=== PATIENT | female | born 1955 | race American Indian/Alaskan Native ===

== ENCOUNTER 2019-01-04 10:30 | Inpatient (IN) | payer OTHER ==
[2019-01-04] MEDS ORDERED: NACL 0.9% 500 ML 500 ML IV ONE (11:11)
[2019-01-04] MEDS ORDERED: NACL 0.9% 1000 ML 1,000 ML ONE (11:32)
[2019-01-04 11:55] LABS: Basophils # (Auto) 0.1 K/mm3 (0.0-0.1); Basophils % (Auto) 0.6 % (0.0-1.8); Eosinophils # (Auto) 0.2 K/mm3 (0.0-0.4); Eosinophils % (Auto) 1.7 % (0.0-4.3); Hematocrit 33.8 % (30.3-42.9); Hemoglobin 11.5 gm/dl (10.1-14.3); Lymphocytes # (Auto) 2.9 K/mm3 (1.2-5.4); Lymphocytes % (Auto) 25.2 % (13.4-35.0); Mean Corpuscular HGB Conc 34 % (30-34); Monocytes # (Auto) 0.5 K/mm3 (0.0-0.8); Monocytes % (Auto) 4.6 % (0.0-7.3); Platelet Count 295 K/mm3 (140-440); Red Blood Count 4.96 M/mm3 (3.65-5.03); Red Cell Distribution Width 16.1 % (13.2-15.2)
[2019-01-04 12:01] LABS: Mean Corpuscular Volume 68 fl (79-97)
[2019-01-04 12:06] LABS: Partial Thromboplastin Time 30.1 Sec. (24.2-36.6)
[2019-01-04 12:13] LABS: Bacteria,Urine 1+ /HPF (Negative); Bilirubin,Urine NEG (Negative); Blood,Urine SM (Negative); Color,Urine Straw (Yellow); Protein,Urine <15 mg/dL mg/dL (Negative); Urobilinogen,Urine < 2.0 mg/dL (<2.0); WBC,Urine < 1.0 /HPF (0.0-6.0)
[2019-01-04 12:13] LABS: Creatine Kinase MB 1.8 ng/mL (0.0-4.0)
[2019-01-04 12:15] LABS: BUN/Creatinine Ratio 18; Blood Urea Nitrogen 11 mg/dL (7-17); Calcium 9.4 mg/dL (8.4-10.2); Hemolysis Index 8
--- NOTE | 2019-01-04 12:16 | Emergency Department Report ---
ED General Adult HPI - General Chief complaint: Arrhythmia/Palpitations Stated complaint: MONIK Time Seen by Provider: 01/04/19 11:11 Source: EMS Mode of arrival: Stretcher Limitations: No Limitations - History of Present Illness Initial comments: This is a 63-year-old female that was transported via EMS for evaluation of difficulty in breathing. They found her to have a heart rate that was elevated. They asked her to do a vagal maneuver and actually this slowed things down. I reviewed her prehospital EKGs and they do appear to be possibly consistent with supraventricular tachycardia and read as probable sinus tachycardia by the computer. She does have a first-degree AV block on one of 3 EKGs with her heart rate in the low 90s. That may account for the difficulty in being certain of her concordia focus. It may very well be that these are all sinus tachycardia. Medication she arrives with a normal sinus rhythm. Patient tells me that she has had several similar such episodes. She is at rest when they happen. She become short of breath. Doesn't experience any chest pain pressure or tightness. She mentioned to me assessing the risk that she had some right arm numbness. She told me that she had right facial and circumoral tingling. She mentioned a headache to the nurse but denied any headache on my encounter. She is not currently short of breath. She states that she may suffer from anxiety. Her called EMS. She is essentially back to her baseline. She states that she "takes it easy at her age". She denies exert ional dyspnea. -: Gradual Quality: other (some circumoral etc. paresthesias as above) Consistency: now resolved Improves with: none Worsens with: none Associated Symptoms: denies other symptoms, shortness of breath - Related Data Allergies Allergy/AdvReac Type Severity Reaction Status Date / Time No Known Allergies Allergy Unverified 01/04/19 11:51 ED Review of Systems ROS: Stated complaint: MONIK Other details as noted in HPI Constitutional: denies: chills, fever Eyes: denies: eye pain, eye discharge, vision change ENT: denies: ear pain, throat pain Respiratory: shortness of breath. denies: cough, wheezing Cardiovascular: denies: chest pain, palpitations Endocrine: no symptoms reported Gastrointestinal: denies: abdominal pain, nausea, diarrhea Genitourinary: denies: urgency, dysuria, discharge Musculoskeletal: denies: back pain, joint swelling, arthralgia Skin: denies: rash, lesions Neurological: paresthesias. denies: headache, weakness, numbness, confusion, abnormal gait, vertigo Psychiatric: denies: anxiety, depression Hematological/Lymphatic: denies: easy bleeding, easy bruising ED Past Medical Hx - Past Medical History Previous Medical History?: Yes Hx Hypertension: Yes Hx Diabetes: Yes - Surgical History Hx Cholecystectomy: Yes Additional Surgical History: Fibroids - Social History Smoking Status: Never Smoker Substance Use Type: None ED Physical Exam - General Limitations: No Limitations General appearance: alert, in no apparent distress - Head Head exam: Present: atraumatic, normocephalic - Eye Eye exam: Present: normal appearance. Absent: scleral icterus - ENT ENT exam: Present: mucous membranes moist - Neck Neck exam: Present: normal inspection. Absent: tenderness, meningismus - Respiratory Respiratory exam: Present: normal lung sounds bilaterally. Absent: respiratory distress - Cardiovascular Cardiovascular Exam: Present: regular rate, normal rhythm. Absent: systolic murmur, diastolic murmur, rubs, gallop - GI/Abdominal GI/Abdominal exam: Present: soft, normal bowel sounds. Absent: distended, tenderness, guarding, rebound, rigid - Extremities Exam Extremities exam: Present: normal inspection - Back Exam Back exam: Present: normal inspection - Neurological Exam Neurological exam: Present: alert, oriented X3, CN II-XII intact. Absent: motor sensory deficit - Psychiatric Psychiatric exam: Present: normal affect, normal mood - Skin Skin exam: Present: warm, dry, intact, normal color. Absent: rash ED Course Vital Signs 01/04/19 01/04/19 01/04/19 10:40 10:46 10:48 Temperature 98.2 F Pulse Rate 102 H Respiratory 16 Rate Blood Pressure 126/80 126/80 O2 Sat by Pulse 99 98 99 Oximetry 01/04/19 01/04/19 11:00 11:33 Temperature Pulse Rate Respiratory Rate Blood Pressure 126/80 109/90 O2 Sat by Pulse 98 Oximetry - Reevaluation(s) Reevaluation #1: Discussed with Dr. Link. CTA is pending. The d-dimer is just slightly elevated . Patient will be admitted for further care and evaluation by the hospitalist service. 01/04/19 12:31 ED Medical Decision Making - Lab Data Result diagrams: 01/04/19 11:27 01/04/19 11:27 Laboratory Results - last 24 hr 01/04/19 01/04/19 01/04/19 11:27 11:27 11:27 WBC 11.6 H RBC 4.96 Hgb 11.5 Hct 33.8 MCV 68 L MCH 23 L MCHC 34 RDW 16.1 H Plt Count 295 Lymph % (Auto) 25.2 [place] % (Auto) 4.6 Eos % (Auto) 1.7 Baso % (Auto) 0.6 Lymph # 2.9 [place] # 0.5 Eos # 0.2 Baso # 0.1 Seg Neutrophils % 67.9 Seg Neutrophils # 7.9 H PT 13.8 INR 1.00 APTT 30.1 D-Dimer 283.34 H Sodium 142 Potassium 3.4 L Chloride 101.7 Carbon Dioxide 25 Anion Gap 19 BUN 11 Creatinine 0.6 L Estimated GFR > 60 BUN/Creatinine Ratio 18 Glucose 187 H Calcium 9.4 Magnesium 1.40 L Total Creatine Kinase 109 CK-MB (CK-2) 1.8 CK-MB (CK-2) Rel Index 1.6 Troponin T < 0.010 NT-Pro-B Natriuret Pep 168.4 Urine Color Urine Turbidity Urine pH Ur Specific [place] Urine Protein Urine Glucose (UA) Urine Ketones Urine Blood Urine Nitrite Urine Bilirubin Urine Urobilinogen Ur Leukocyte Esterase Urine WBC (Auto) Urine RBC (Auto) U Epithel Cells (Auto) Urine Bacteria (Auto) 01/04/19 11:50 WBC RBC Hgb Hct MCV MCH MCHC RDW Plt Count Lymph % (Auto) [place] % (Auto) Eos % (Auto) Baso % (Auto) Lymph # [place] # Eos # Baso # Seg Neutrophils % Seg Neutrophils # PT INR APTT D-Dimer Sodium Potassium Chloride Carbon Dioxide Anion Gap BUN Creatinine Estimated GFR BUN/Creatinine Ratio Glucose Calcium Magnesium Total Creatine Kinase CK-MB (CK-2) CK-MB (CK-2) Rel Index Troponin T NT-Pro-B Natriuret Pep Urine Color Straw Urine Turbidity Clear Urine pH 8.0 H Ur Specific [place] 1.004 Urine Protein <15 mg/dl Urine Glucose (UA) Neg Urine Ketones Tr Urine Blood Sm Urine Nitrite Neg Urine Bilirubin Neg Urine Urobilinogen < 2.0 Ur Leukocyte Esterase Lg Urine WBC (Auto) < 1.0 Urine RBC (Auto) 1.0 U Epithel Cells (Auto) 2.0 Urine Bacteria (Auto) 1+ - EKG Data -: EKG Interpreted by Me EKG shows normal: sinus rhythm, axis, intervals, QRS complexes, ST-T waves Rate: normal - EKG Data Interpretation: no acute changes (there is a QS in V2 and V3 consistent with old zone) - Radiology Data Radiology results: image reviewed (chest x-ray no acute process) Critical care attestation.: If time is entered above; I have spent that time in minutes in the direct care of this critically ill patient, excluding procedure time. 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
[2019-01-04 12:20] LABS: Amphetamine Screen,Urine PRESUMPTIVE NEGATIVE; Benzodiazepines Screen,Urine PRESUMPTIVE NEGATIVE; Cannabinoid Screen,Urine PRESUMPTIVE NEGATIVE; Cocaine Screen,Urine PRESUMPTIVE NEGATIVE; Methadone Screen,Urine PRESUMPTIVE NEGATIVE; Opiate Screen,Urine PRESUMPTIVE NEGATIVE
[2019-01-04] MEDS ORDERED: MAGNESIUM SULFATE 2GM/50ML 2 GM/50 ML BAG IV ONE ×2 (12:23→13:06)
[2019-01-04] MEDS ORDERED: BABY ASPIRIN PO ONE (12:32)
[2019-01-04] MEDS ORDERED: BABY ASPIRIN ONE (13:06)
--- NOTE | 2019-01-04 13:08 | XRay Report ---
PROCEDURE: XR CHEST 1V AP TECHNIQUE: Chest, portable upright HISTORY: Dysrhythmia COMPARISON: None FINDINGS: The heart size is normal. There is no pulmonary vascular congestion seen. Mediastinal contours are normal. Lungs are clear. There is no pleural effusion seen. There is no pneumothorax seen. IMPRESSION: No acute abnormality identified. This document is electronically signed by Lashawn Vergara MD., Jan 04 2019 01:06:13 PM ET
--- NOTE | 2019-01-04 14:59 | Cat Scan Report ---
PROCEDURE: CT ANGIO CHEST TECHNIQUE: Computerized tomographic angiography of the chest was performed after the IV injection of iodinated nonionic contrast including image processing. The image data was postprocessed using 2-di mensional multiplanar reformatted (MPR) and 3-dimensional (MIP and/or volume rendered) techniques. Au tomated exposure control, adjustment of mA and/or kV according to patient size, or iterative reconstr uction dose optimization techniques were utilized. Sagittal and coronal reformatted images HISTORY: MONIK COMPARISONS: Chest x-ray January 04, 2019 . FINDINGS: Aorta intact without aneurysm or dissection. Pulmonary trunk dilated to 4.4 cm. No acute pulmonary embolus Cardiomegaly. No coronary atherosclerotic calcification identified. No pericardial effusion No axillary, mediastinal or hilar adenopathy No pneumothorax. No effusion. No consolidation No emphysematous change. No bronchiectasis. No suspect pulmonary nodule Upper abdomen demonstrates no free air. No free fluid. No acute inflammatory change No acute bony abnormality. IMPRESSION: No acute pulmonary embolus Pulmonary trunk is dilated which can be seen in the setting of pulmonary arterial hypertension Aorta intact without aneurysm or dissection No acute consolidation or effusion . This document is electronically signed by Jim Marie MD., Jan 04 2019 02:56:52 PM ET
--- NOTE | 2019-01-04 17:37 | History and Physical Report ---
History of Present Illness Date of examination: 01/04/19 Date of admission: 01/04/19 12:55 Medications and Allergies Allergies Allergy/AdvReac Type Severity Reaction Status Date / Time No Known Allergies Allergy Unverified 01/04/19 11:51 Home Medications Medication Instructions Recorded Confirmed Last Taken Type Aspirin EC 81 mg PO DAILY 01/04/19 01/04/19 Unknown History Diclofenac Sodium 75 mg PO DAILY 01/04/19 01/04/19 Unknown History Gabapentin [Neurontin] 300 mg PO TID 01/04/19 01/04/19 Unknown History Hydrochlorothiazide 25 mg PO DAILY 01/04/19 01/04/19 Unknown History Metformin HCl [metFORMIN] 1,000 mg PO BID 01/04/19 01/04/19 Unknown History Quinapril HCl 20 mg PO QDAY 01/04/19 01/04/19 Unknown History Simvastatin 80 mg PO HS 01/04/19 01/04/19 Unknown History amLODIPine [Norvasc] 10 mg PO DAILY 01/04/19 01/04/19 Unknown History glipiZIDE [Glucotrol] 25 mg PO DAILY 01/04/19 01/04/19 Unknown History Active Meds: Active Medications Insulin Human Lispro (Humalog) 0 unit SUB-Q [facility]; Protocol Exam - Constitutional Vitals: Temp Pulse Resp BP Pulse Ox 97.8 F 79 16 165/80 95 01/04/19 16:20 01/04/19 16:20 01/04/19 16:20 01/04/19 16:20 01/04/19 16:20 Results - Labs CBC & Chem 7: 01/04/19 11:27 01/04/19 11:27 Labs: Laboratory Last Values WBC 11.6 K/mm3 (4.5-11.0) H 01/04/19 11:27 RBC 4.96 M/mm3 (3.65-5.03) 01/04/19 11:27 Hgb 11.5 gm/dl (10.1-14.3) 01/04/19 11:27 Hct 33.8 % (30.3-42.9) 01/04/19 11:27 MCV 68 fl (79-97) L 01/04/19 11:27 MCH 23 pg (28-32) L 01/04/19 11:27 MCHC 34 % (30-34) 01/04/19 11:27 RDW 16.1 % (13.2-15.2) H 01/04/19 11:27 Plt Count 295 K/mm3 (140-440) 01/04/19 11:27 Lymph % (Auto) 25.2 % (13.4-35.0) 01/04/19 11:27 [place] % (Auto) 4.6 % (0.0-7.3) 01/04/19 11:27 Eos % (Auto) 1.7 % (0.0-4.3) 01/04/19 11:27 Baso % (Auto) 0.6 % (0.0-1.8) 01/04/19 11: Lymph # 2.9 K/mm3 (1.2-5.4) 01/04/19 11: [place] # 0.5 K/mm3 (0.0-0.8) 01/04/19 11: Eos # 0.2 K/mm3 (0.0-0.4) 01/04/19 11: Baso # 0.1 K/mm3 (0.0-0.1) 01/04/19 11:27 Seg Neutrophils % 67.9 % (40.0-70.0) 01/04/19 11: Seg Neutrophils # 7.9 K/mm3 (1.8-7.7) H 01/04/19 11:27 PT 13.8 Sec. (12.2-14.9) 01/04/19 11: INR 1.00 (0.87-1.13) 01/04/19 11: APTT 30.1 Sec. (24.2-36.6) 01/04/19 11:27 283.34 ng/mlDDU (0-234) H 01/04/19 11:27 Sodium 142 mmol/L (137-145) 01/04/19 11:27 Potassium 3.4 mmol/L (3.6-5.0) L 01/04/19 11:27 Chloride 101.7 mmol/L (98-107) 01/04/19 11: Carbon Dioxide 25 mmol/L (22-30) 01/04/19 11:27 19 mmol/L 01/04/19 11:27 BUN 11 mg/dL (7-17) 01/04/19 11:27 0.6 mg/dL (0.7-1.2) L 01/04/19 11:27 Estimated GFR > 60 ml/min 01/04/19 11:27 18 % 01/04/19 11:27 Glucose 187 mg/dL (65-100) H 01/04/19 11:27 Lactic Acid 1.60 mmol/L (0.7-2.0) 01/04/19 11:40 Calcium 9.4 mg/dL (8.4-10.2) 01/04/19 11:27 Magnesium 1.40 mg/dL (1.7-2.3) L 01/04/19 11:27 109 units/L (30-135) 01/04/19 11:27 CK-MB (CK-2) 1.8 ng/mL (0.0-4.0) 01/04/19 11:27 CK-MB (CK-2) Rel Index 1.6 (0-4) 01/04/19 11:27 < 0.010 ng/mL (0.00-0.029) 01/04/19 11:27 NT-Pro-B Natriuret Pep 168.4 pg/mL (0-900) 01/04/19 11:27 TSH 2.090 mlU/mL (0.270-4.200) 01/04/19 11:27 Straw (Yellow) 01/04/19 11:50 Clear (Clear) 01/04/19 11:50 8.0 (5.0-7.0) H 01/04/19 11:50 Ur Specific [place] 1.004 (1.003-1.030) 01/04/19 11:50 <15 mg/dl mg/dL (Negative) 01/04/19 11:50 Neg mg/dL (Negative) 01/04/19 11:50 Tr mg/dL (Negative) 01/04/19 11:50 Sm (Negative) 01/04/19 11:50 Neg (Negative) 01/04/19 11:50 Neg (Negative) 01/04/19 11:50 < 2.0 mg/dL (<2.0) 01/04/19 11:50 Ur Leukocyte Esterase Lg (Negative) 01/04/19 11:50 < 1.0 /HPF (0.0-6.0) 01/04/19 11:50 1.0 /HPF (0.0-6.0) 01/04/19 11:50 U Epithel Cells (Auto) 2.0 /HPF (0-13.0) 01/04/19 11:50 1+ /HPF (Negative) 01/04/19 11:50 Presumptive negative 01/04/19 11:50 Presumptive negative 01/04/19 11:50 Ur Barbiturates Screen Presumptive negative 01/04/19 11:50 Ur Phencyclidine Scrn Presumptive negative 01/04/19 11:50 Ur Amphetamines Screen Presumptive negative 01/04/19 11:50 U Benzodiazepines Scrn Presumptive negative 01/04/19 11:50 Presumptive negative 01/04/19 11:50 U Marijuana (THC) Screen Presumptive negative 01/04/19 11:50 Disclamer 01/04/19 11:50 - Imaging and Cardiology Imaging and Cardiology: CTA chest IMPRESSION: No acute pulmonary embolus Pulmonary trunk is dilated which can be seen in the setting of pulmonary arterial hypertension Aorta intact without aneurysm or dissection No acute consolidation or effusion . This document is electronically signed by Jim Marie MD., Jan 04 2019 02:56:52 PM ET
[2019-01-04] MEDS ORDERED: QUINAPRIL HCL 20 MG PO SCH (17:45)
[2019-01-04] MEDS ORDERED: NON-FORMULARY (Hydrochlorothiazide 25 MG) PO SCH (17:45)
[2019-01-04] MEDS: HumaLOG SUB-Q SCH ×2 (17:56→21:43)
[2019-01-04] MEDS: HCTZ PO SCH (18:07)
[2019-01-04] MEDS: ZESTRIL PO SCH (18:08)
[2019-01-04] MEDS: GLUCOPHAGE PO SCH (18:08)
[2019-01-04] MEDS: GLUCOTROL PO SCH (18:09)
[2019-01-04] MEDS: NORVASC PO SCH (18:09)
[2019-01-04] MEDS: VOLTAREN DR PO SCH (19:05)
[2019-01-04] MEDS: NEURONTIN PO SCH (21:42)
[2019-01-04] MEDS ORDERED: ZOFRAN IV PRN (21:49)
[2019-01-04] MEDS ORDERED: MORPHINE IV PRN (21:49)
[2019-01-04] MEDS ORDERED: PERCOCET 5/325 PO PRN (21:49)
[2019-01-04] MEDS ORDERED: TYLENOL PO PRN (21:49)
[2019-01-04] MEDS ORDERED: SODIUM CHLORIDE FLUSH SYRINGE 10 ML IV PRN (21:49)
[2019-01-04] MEDS ORDERED: NON-FORMULARY (Metformin Hcl [Metformin] 1,000 MG) PO SCH (22:00)
[2019-01-04] MEDS ORDERED: PRAVACHOL PO SCH (22:00)
[2019-01-04] MEDS ORDERED: SIMVASTATIN 80 MG PO SCH (22:00)
[2019-01-04] MEDS: SODIUM CHLORIDE FLUSH SYRINGE 10 ML IV SCH (22:01)
--- NOTE | 2019-01-05 03:35 | Event Note ---
Date: 01/04/19 Chest pain Palpitations T2DM HTN HLD
--- NOTE | 2019-01-05 04:04 | History and Physical Report ---
CHIEF COMPLAINT: 1. Palpitations and difficulty breathing for 1 day. 2. Some chest tightness since morning. HISTORY OF PRESENT ILLNESS: This 63-year-old female with history of hypertension, hyperlipidemia, and type 2 diabetes comes in for difficulty breathing and palpitations. Also, some right upper extremity and right facial numbness. Also, some chest tightness and right-sided tingling and subsided. No shortness of breath. No diaphoresis. PAST MEDICAL HISTORY: As mentioned, hypertension, diabetes, hyperlipidemia. PAST SURGICAL HISTORY: Cholecystectomy and thyroidectomy. SOCIAL HISTORY: Does not smoke. FAMILY HISTORY: Significant for hypertension. PHYSICAL EXAMINATION: GENERAL: Young elderly female, cooperative during the examination. VITAL SIGNS: Blood pressure was 165/80, temperature is 98.3, pulse is 70, respirations 18. HEENT: Unremarkable. Pupils are equal and reactive. NECK: Supple, no lymphadenopathy, no thyromegaly. LUNGS: Clear to auscultation and percussion. Good air entry. CARDIOVASCULAR: S1, S2 heard. No gallop, no murmur, no rub. Apical impulse in left fifth intercostal space and midclavicular line. ABDOMEN: Soft and benign. No hepatosplenomegaly, no guarding, no rigidity. Hernial orifices are normal. EXTREMITIES: Good pedal pulses. No pedal edema. CENTRAL NERVOUS SYSTEM: Alert and oriented x 4, nonfocal exam. SKIN: Normal. LABORATORY DATA AND IMAGING STUDIES: EKG shows sinus rhythm, left atrial enlargement, anteroseptal infarct, age indeterminate. LABORATORY DATA: White count 11,600, H and H of 11.5 and 33.8, platelet count is 295,000. D-dimer is 283. Potassium is 3.4, glucose is 187. Lactic acid is normal at 1.60. Hemoglobin A1c was not done. Urine was normal. Drug screen was negative. Chest x-ray and chest CT are normal. No acute embolism. ASSESSMENT AND PLAN: 1. Chest pain, rule out myocardial infarction, chest pain protocol. 2. Palpitations secondary to increased heart rate. We will get a Cardiology consult. 3. Hypertension. Continue antihypertensives. 4. Type 2 diabetes. Continue oral hypoglycemics and coverage. 5. Hyperlipidemia. Continue statins. 6. Deep venous thrombosis prophylaxis. Lovenox 40 mg subcutaneously daily. JOB# [id number] VICTORINO/RIYA
[2019-01-05] MEDS: HumaLOG SUB-Q SCH ×5 (08:00→13:31)
[2019-01-05] MEDS ORDERED: LEXISCAN IV ONE ×2 (08:04→08:08)
[2019-01-05] MEDS: GLUCOPHAGE PO SCH (09:52)
[2019-01-05] MEDS: NEURONTIN PO SCH ×2 (09:52→13:30)
[2019-01-05] MEDS ORDERED: HALFPRIN EC PO SCH (10:00)
[2019-01-05 10:05] LABS: Basophils # (Auto) 0.1 K/mm3 (0.0-0.1); Basophils % (Auto) 0.5 % (0.0-1.8); Eosinophils # (Auto) 0.2 K/mm3 (0.0-0.4); Eosinophils % (Auto) 1.8 % (0.0-4.3); Hematocrit 34.6 % (30.3-42.9); Hemoglobin 11.2 gm/dl (10.1-14.3); Lymphocytes # (Auto) 2.6 K/mm3 (1.2-5.4); Lymphocytes % (Auto) 23.1 % (13.4-35.0); Mean Corpuscular HGB Conc 32 % (30-34); Monocytes # (Auto) 0.5 K/mm3 (0.0-0.8); Monocytes % (Auto) 4.5 % (0.0-7.3); Platelet Count 280 K/mm3 (140-440); Red Blood Count 5.03 M/mm3 (3.65-5.03); Red Cell Distribution Width 16.3 % (13.2-15.2)
[2019-01-05 10:15] LABS: Mean Corpuscular Volume 69 fl (79-97)
[2019-01-05 10:30] LABS: Alanine Aminotransferase 12 units/L (7-56); Albumin 4.2 g/dL (3.9-5); BUN/Creatinine Ratio 14; Blood Urea Nitrogen 10 mg/dL (7-17); Calcium 9.2 mg/dL (8.4-10.2); Hemolysis Index 0
--- NOTE | 2019-01-05 11:43 | Discharge Summary ---
Providers - Providers Date of Admission: 01/04/19 12:55 Attending physician: DICKSON FELTON MD Primary care physician: RAMON TOVAR MD Hospitalization Condition: Stable Hospital course: 63-year-old woman Complaining of shortness of breath and palpitations, she has a prominent complaint of right arm numbness associated with facial tingling, the patient went on to have a stress test which was negative, ACS was ruled out. Chest x-ray and EKG were within normal limits. Echo showed preserved EF. The patient was reassured and subsequently discharged home. Diagnoses Chest pain due to costochondritis Hypertension Diabetes Disposition: DC- TO HOME OR SELFCARE Time spent for discharge: 35 minutes Core Measure Documentation - Palliative Care Palliative Care/ Comfort Measures: Not Applicable - Core Measures Any of the following diagnoses?: none Exam - Constitutional Vitals: Temp Pulse Resp BP Pulse Ox 98.5 F 71 20 136/69 96 01/05/19 05:09 01/05/19 05:09 01/05/19 05:09 01/05/19 05:09 01/05/19 05:09 General appearance: Present: no acute distress, well-nourished - EENT Eyes: Present: PERRL ENT: hearing intact, clear oral mucosa - Neck Neck: Present: supple, normal ROM - Respiratory Respiratory effort: normal Respiratory: bilateral: CTA - Cardiovascular Heart Sounds: Present: S1 & S2. Absent: rub, click - Extremities Extremities: pulses symmetrical, No edema Peripheral Pulses: within normal limits - Abdominal General gastrointestinal: Present: soft, non-tender, non-distended, normal bowel sounds Female genitourinary: Present: normal - Integumentary Integumentary: Present: clear, warm, dry - Musculoskeletal Musculoskeletal: gait normal, strength equal bilaterally - Psychiatric Psychiatric: appropriate mood/affect, intact judgment & insight - Neurologic Neurologic: CNII-XII intact, moves all extremities Plan Follow up with: PRIMARY CARE, [Primary Care Provider] - 3-5 Days
[2019-01-05 13:30] VITALS: BP 144/68
[2019-01-05] MEDS: ZESTRIL PO SCH (13:30)
[2019-01-05] MEDS: NORVASC PO SCH (13:30)
[2019-01-05] MEDS: GLUCOTROL PO SCH (13:30)
[2019-01-05] MEDS: HCTZ PO SCH (13:30)
[2019-01-05] MEDS: VOLTAREN DR PO SCH (14:19)
[2019-01-05] MEDS: SODIUM CHLORIDE FLUSH SYRINGE 10 ML IV SCH (14:26)
[2019-01-05] MEDS ORDERED: LOVENOX SUB-Q SCH (22:00)
--- NOTE | 2019-01-05 23:47 | Treadmill Report ---
NUCLEAR PERFUSION STUDY REASON FOR STUDY: Chest pain and shortness of breath. IMAGING PROTOCOL: The patient received 10 mCi of Technetium 99m Tetrofosmin for resting image and 28 mCi of Technetium 99m Tetrofosmin for stress imaging. The imaging for the whole procedure was completed 30-90 minutes following the initial injection of Technetium 99m Tetrofosmin. The SPECT imaging in the 180 degree arc was performed in the right anterior oblique projection. Computerized reconstruction of the images was performed for analysis. IMAGING RESULTS: Normal cavity size from stress to rest. Normal distribution of radionuclide in the anterior, inferior, septal, and apical regions. Gated SPECT, EF 64% with no wall motion abnormality. The patient exercised on Sammy protocol for 7 minutes. No EKG changes, stopped secondary to shortness of breath. No exaggerated BP response to exercise. SUMMARY: 1. Negative treadmill EKG. 2. Fair exercise capacity 7 minutes Sammy protocol, stopped secondary to shortness of breath. 3. No exaggerated BP response to exercise. 4. Normal rest and stress myocardial perfusion scan. No significant stress ischemia. No wall motion abnormality. Gated SPECT, 64%. JOB# [id number] VRM/NTS
== END 2019-01-05 15:23 | disposition home or self-care (01) | DRG 206 ==
LOC: ED 10:30 → 3A 12:55
PROVIDERS: ADMIT Internal Medicine; ATTEND Internal Medicine
DX: M94.0 Chondrocostal junction syndrome [Tietze] (principal); R00.0 Tachycardia, unspecified; I10 Essential (primary) hypertension; E78.5 Hyperlipidemia, unspecified; I44.0 Atrioventricular block, first degree; E11.65 Type 2 diabetes mellitus with hyperglycemia; Z90.49 Acquired absence of other specified parts of digestive tract; Z82.49 Family history of ischemic heart disease and other diseases of the circulatory system; Z79.84 Long term (current) use of oral hypoglycemic drugs
CPT/HCPCS: 36415; 71045; 71275; 78452; 80048; 80053; 80307; 81001; 82140; 82550; 82553; 82962; 83036; 83735; 83880; 84443; 84484; 85025; 85379; 85610; 85730; 93005; 93010; 93017; 93306; G0378; A9270-GY; A9502; J1815; J2785; J3475; J7030; Q9967